=== PATIENT | male | born 1950 | race African-American/Black ===

== ENCOUNTER 2022-04-27 09:28 | Inpatient (IN) | payer MEDICARE, MEDICAID ==
[~2022-04-27] VITALS: Ht 185.4 cm; Wt 108.9 kg
[2022-04-27 10:06] LABS: BASOPHILS % 0.3 % (0.0-2.0); EOSINOPHILS % 0.1 % (0.0-5.0); HEMATOCRIT. 37.8 % (42.0-52.0); HEMOGLOBIN. 12.4 g/dL (14.0-18.0); LYMPHOCYTES % 7.5 % (20.0-50.0); MEAN CORPUSCULAR HEMOGLOBIN 28.3 pg (28.0-32.0); MEAN CORPUSCULAR VOLUME 86.2 fL (80.0-94.0); MONOCYTES % 5.3 % (2.0-8.0); NEUTROPHILS % 86.8 % (40.0-76.0); PLATELET 175 x1000/uL (130-400); RED BLOOD CELL COUNT 4.39 mill/uL (4.7-6.1); RED CELL DISTRIBUTION WIDTH 14.4 % (11.6-14.6)
[2022-04-27 10:18] LABS: CHLORIDE 105 mEq/L (98-107)
[2022-04-27 10:29] LABS: ETHANOL BLOOD < 10 mg/dL
[2022-04-27 11:11] LABS: CLARITY URINE CLEAR (CLEAR); COLOR URINE YELLOW (YELLOW); KETONES URINE NEGATIVE (NEGATIVE); LEUKOCYTE ESTERASE URINE NEGATIVE (NEGATIVE); NITRITE URINE NEGATIVE (NEGATIVE); OCCULT BLOOD URINE NEGATIVE (NEGATIVE); PROTEIN URINE NEGATIVE (NEGATIVE); SPECIFIC GRAVITY URINE 1.023 (1.005-1.030)
[2022-04-27 11:25] LABS: *AMPHETAMINES SCREEN URINE NEGATIVE (NEGATIVE); *BARBITURATES SCREEN URINE NEGATIVE (NEGATIVE); *BENZODIAZEPINES SCREEN URINE NEGATIVE (NEGATIVE); *COCAINE SCREEN URINE NEGATIVE (NEGATIVE); CANNABINOID URINE SCREEN NEGATIVE (NEGATIVE); METHADONE URINE SCREEN NEGATIVE (NEGATIVE); OPIATES URINE SCREEN NEGATIVE (NEGATIVE); PHENCYCLIDINE URINE SCREEN NEGATIVE (NEGATIVE)
[2022-04-27] MEDS: AMLODIPINE 10MG TABLET PO SCH (14:30)
[2022-04-27] MEDS ORDERED: GUAIFENESIN 200MG/10ML SUGAR FREE UDC PO PRN (14:30)
[2022-04-27] MEDS ORDERED: ACETAMINOPHEN 325MG TABLET PO PRN (14:30)
[2022-04-27] MEDS ORDERED: CLONIDINE 0.1MG TABLET PO PRN (14:30)
[2022-04-27] MEDS ORDERED: HYDROMORPHONE HCL/PF 2MG/ML CPJ IV PRN (14:30)
[2022-04-27] MEDS ORDERED: HYDROCODONE/ACETAMINOPHEN 5/325MG TABLET PO PRN (14:30)
[2022-04-27] MEDS ORDERED: DOCUSATE SODIUM 100MG CAPSULE PO PRN (14:30)
[2022-04-27] MEDS ORDERED: ONDANSETRON HCL 4MG/2ML INJ IV PRN (14:30)
[2022-04-27] MEDS ORDERED: ENOXAPARIN 40MG/0.4ML SYR SUBCUT SCH (15:00)
[2022-04-27] MEDS: MULTIVITAMINS,THER W-MINERALS TABLET PO SCH (16:28)
[2022-04-27] MEDS: THIAMINE HCL 100MG TABLET PO SCH (16:28)
[2022-04-27] MEDS: ENOXAPARIN 30MG/0.3ML SYR SUBCUT SCH (17:00)
[2022-04-27 17:47] VITALS: BP 158/100
[2022-04-27 17:53] VITALS: BP 158/100
[2022-04-27 20:00] VITALS: BP 139/82
[2022-04-27] MEDS ORDERED: DEXTROSE 50% WATER 50ML SYRINGE IV PRN (20:00)
[2022-04-27] MEDS: BLOOD SUGAR DIAGNOSTIC STRIP TEST SCH (21:00)
[2022-04-27] MEDS: INSULIN LISPRO 100 UNITS/ML SUBCUT SCH (21:00)
[2022-04-27 22:00] VITALS: BP 127/81
[2022-04-27] MEDS: SODIUM CHLORIDE 0.45% 1,000 ML IV SCH (22:26)
[2022-04-27] MEDS ORDERED: NALOXONE HCL 0.4MG/ML VIAL IV PRN (22:45)
[2022-04-28] VITALS (7 sets, daily range): BP systolic 128–148; BP diastolic 75–93
[2022-04-28] MEDS: SODIUM CHLORIDE 0.45% 1,000 ML IV SCH (05:44)
[2022-04-28] MEDS: BLOOD SUGAR DIAGNOSTIC STRIP TEST SCH ×4 (06:51→20:37)
[2022-04-28] MEDS: INSULIN LISPRO 100 UNITS/ML SUBCUT SCH ×4 (06:51→20:38)
[2022-04-28] MEDS: FOLIC ACID 1MG TABLET PO SCH (09:08)
[2022-04-28] MEDS: MULTIVITAMINS,THER W-MINERALS TABLET PO SCH (09:08)
[2022-04-28] MEDS: THIAMINE HCL 100MG TABLET PO SCH (09:08)
[2022-04-28] MEDS: ENOXAPARIN 30MG/0.3ML SYR SUBCUT SCH ×2 (09:09→16:13)
[2022-04-28] MEDS: AMLODIPINE 10MG TABLET PO SCH (09:09)
[2022-04-28] MEDS ORDERED: SITA50TA3 MT (15:19)
[2022-04-28] MEDS ORDERED: METF-416 MT (15:19)
[2022-04-28] MEDS ORDERED: CYAN-33 MT (15:19)
[2022-04-28] MEDS ORDERED: HYDR-4009 MT (15:19)
[2022-04-28] MEDS ORDERED: CELE-84 MT (15:19)
[2022-04-28] MEDS ORDERED: ATOR40TA70 MT (15:19)
[2022-04-28] MEDS ORDERED: PREG50CA MT (15:19)
[2022-04-28] MEDS ORDERED: LISI20TA31 MT (15:19)
[2022-04-28] MEDS ORDERED: TERA10CA4 MT (15:19)
[2022-04-28] MEDS: BACITRACIN/POLYMYXIN B SULFATE OPHTH OINT 3.5GM BOTHEYE SCH (20:40)
[2022-04-28] MEDS: SULFACETAMIDE SODIUM 10% OPHTH DROPS 15ML BOTHEYE SCH (20:40)
[2022-04-29] VITALS: BP 132/82
[2022-04-29] MEDS: SODIUM CHLORIDE 0.45% 1,000 ML IV SCH (01:43)
[2022-04-29 04:00] VITALS: BP 137/82
[2022-04-29] MEDS: BLOOD SUGAR DIAGNOSTIC STRIP TEST SCH ×2 (06:47→12:24)
[2022-04-29] MEDS: INSULIN LISPRO 100 UNITS/ML SUBCUT SCH ×2 (06:51→12:24)
[2022-04-29 08:00] VITALS: BP 135/83
[2022-04-29 08:23] LABS: VITAMIN B12 SERUM 1030 pg/mL (211-911)
[2022-04-29] MEDS: MULTIVITAMINS,THER W-MINERALS TABLET PO SCH (09:28)
[2022-04-29] MEDS: THIAMINE HCL 100MG TABLET PO SCH (09:28)
[2022-04-29] MEDS: ENOXAPARIN 30MG/0.3ML SYR SUBCUT SCH (09:28)
[2022-04-29] MEDS: BACITRACIN/POLYMYXIN B SULFATE OPHTH OINT 3.5GM BOTHEYE SCH (09:28)
[2022-04-29] MEDS: SULFACETAMIDE SODIUM 10% OPHTH DROPS 15ML BOTHEYE SCH (09:28)
[2022-04-29] MEDS: FOLIC ACID 1MG TABLET PO SCH (09:28)
[2022-04-29] MEDS: AMLODIPINE 10MG TABLET PO SCH (09:36)
[2022-04-29 11:10] VITALS: BP 135/83
[2022-04-29 12:00] VITALS: BP 114/81
[2022-04-29] MEDS ORDERED: ENOXAPARIN 30MG/0.3ML SYR SUBCUT SCH (21:00)
== END 2022-04-29 16:10 | disposition home or self-care (01) | DRG 72 ==
LOC: ER 09:28 → ENRESERV 15:31 → ER 15:55 → 8WST 18:17
PROVIDERS: ADMIT Hospitalist; ATTEND Hospitalist
DX: G93.49 Other encephalopathy (principal); I10 Essential (primary) hypertension; E11.9 Type 2 diabetes mellitus without complications; E78.5 Hyperlipidemia, unspecified; D63.8 Anemia in other chronic diseases classified elsewhere; H10.30 Unspecified acute conjunctivitis, unspecified eye
CPT/HCPCS: 36415; 70551; 71045; 80053; 80305; 80320; 81003; 82140; 82607; 82962; 83036; 84443; 84484; 85025; 95816; 99285; J1650; J1815; G0480